=== PATIENT | female | born 1955 | race Caucasian/White ===

== ENCOUNTER 2023-09-20 16:36 | Outpatient (CLI) | payer MEDICARE, SELFPAY ==
--- NOTE | ~2023-09-20 | XR_ITS ---
EXAM: XR finger 5th LT min 2V DATE: 09/20/2023 16:58 HISTORY: FRACTURE OF DISTAL PHALANX . COMPARISON: None available. FINDINGS: Decreased mineralization. No fracture or dislocation. No lytic or blastic lesion. Scattere d degenerative changes, typical of osteoporosis arthritis, with the suggestion of early erosions at t he fifth DIP joint. No erosion or periosteal change. Soft tissues within normal limits. IMPRESSION: No acute osseous finding in the left fifth digit. Specifically no definite distal fifth phalange frac ture. 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 Reviewed, dictated and finalized at location K. [employer]ER IMPRESSION: No acute osseous finding in the left fifth digit. Specifically no definite dist al fifth phalange fracture. Polyarticular osteoarthritis, with changes and may represent erosive osteoarthr itis.
== END 2023-09-20 16:37 | disposition home or self-care (01) ==
PROVIDERS: PCP Family Medicine; Visit Provider Plastic Surgery
DX: S62.631A Displaced fracture of distal phalanx of left index finger, initial encounter for closed fracture (principal); M15.9 Polyosteoarthritis, unspecified
CPT/HCPCS: 73140